=== PATIENT | female | born 1935 | race Two or more races ===

== ENCOUNTER → 2019-11-10 07:12 | Outpatient (CLI) | payer OTHER ==
[~2019-11-10 07:12] MED LIST: HYZAAR 50-12.51 EACH; RELAGESIC 5001 EACH PO; TOPROL XL50 M1
== END | disposition home or self-care (01) ==
LOC: LAB 07:12
DX: E03.8 Other specified hypothyroidism (principal); I10 Essential (primary) hypertension; E78.00 Pure hypercholesterolemia, unspecified

== ENCOUNTER 2019-11-10 07:43 | Outpatient (CLI) | payer OTHER | END 2019-11-10 07:51 | disposition home or self-care (01) | LOC: SONOGRAMA 07:43 | DX: E03.8 Other specified hypothyroidism (principal); E04.1 Nontoxic single thyroid nodule ==

== ENCOUNTER 2022-02-21 06:15 | Outpatient (CLI) | payer OTHER | END 2022-02-21 06:18 | disposition home or self-care (01) | LOC: LAB 06:15 | PROVIDERS: ATTEND Internal Medicine Cardiovascular Disease | DX: R94.5 Abnormal results of liver function studies (principal) ==

== ENCOUNTER 2022-02-21 07:12 | Outpatient (CLI) | payer OTHER | END 2022-02-21 07:21 | disposition home or self-care (01) | LOC: SONOGRAMA 07:12 | PROVIDERS: ATTEND Internal Medicine Cardiovascular Disease | DX: R94.5 Abnormal results of liver function studies (principal) ==